=== PATIENT | female | born 1985 | race Hispanic/Latino ===

== ENCOUNTER 2022-11-06 02:16 | Inpatient (IN) | payer OTHER ==
[~2022-11-06] VITALS: Ht 149.9 cm; Wt 49.9 kg
[2022-11-06] MEDS ORDERED: LACTATED RINGERS 1000ML 1,000 ML IV ONE (02:30)
[2022-11-06 02:35] LABS: BASOPHILS % (AUTO) 0.3 % (0.0-5.0); EOSINOPHILS % (AUTO) 63.6 % (0.0-8.0); HEMATOCRIT 40.4 % (36-48); MEAN CORPUSCULAR HEMOGLOBIN 31.9 pg (27.0-33.0); MEAN CORPUSCULAR HGB CONC 31.4 g/dL (32.0-36.0); MEAN CORPUSCULAR VOLUME 101.5 fL (79-99); MONOCYTES % (AUTO) 6.7 % (3.0-13.0); NEUTROPHILS % (AUTO) 25.1 % (40.0-77.0); PLATELET COUNT (AUTO) 291 K/uL (130-400); RED BLOOD CELL COUNT(AUTO) 3.98 MIL/uL (4.00-5.50); RED CELL DISTRIBUTION WIDTH 14.3 % (11.0-15.5); WHITE BLOOD COUNT (AUTO) 20.7 K/uL (4.8-10.8)
[2022-11-06 02:54] LABS: APPEARANCE,URINE CLEAR (CLEAR); BILIRUBIN,URINE NEGATIVE (NEGATIVE); COLOR,URINE COLORLESS (YELLOW); GLUCOSE, URINE (UA) NEGATIVE (NEGATIVE); KETONES,URINE 150 mg/dL (NEGATIVE); LEUKOCYTE ESTERASE ,URINE 25 Leu/uL (NEGATIVE); NITRATE,URINE NEGATIVE (NEGATIVE); OCCULT BLOOD,URINE LARGE (NEGATIVE); PROTEIN,URINE 50 mg/dL (NEGATIVE); UROBILINOGEN,URINE 0.2 mg/dL (0.2-1.0)
[2022-11-06 02:57] LABS: CHLORIDE 103 mmol/L (101-111); GLOMERULAR FILTR. RATE CALC 66 mL/min (>60); GLUCOSE,RANDOM 86 mg/dL (70-105); POTASSIUM 4.8 mmol/L (3.5-5.1); SODIUM SERUM 141 mmol/L (136-145); UREA NITROGEN, BLOOD 15 mg/dL (7-18)
[2022-11-06 02:59] LABS: MUCUS,URINE RARE LPF (None Seen); RBC,URINE 51-100 /HPF (0-1); SQUAMOUS EPITHELIAL CELL,UR FEW /HPF (0-2)
[2022-11-06 03:01] LABS: ALANINE AMINOTRANSFERASE 21 U/L (12-78); ALBUMIN 4.6 g/dL (3.5-5.0); ALCOHOL, BLOOD 102 mg/dL (0-10); ASPARTATE AMINOTRANSFERASE 40 U/L (10-37); TOTAL PROTEIN, SERUM 8.6 g/dL (6.0-8.3)
[2022-11-06 03:02] LABS: LIPASE < 50 U/L (114-286)
[2022-11-06 03:03] LABS: CARBON DIOXIDE 9 mmol/L (21-32)
[2022-11-06 03:06] LABS: HCG,QUALITATIVE URINE NEGATIVE (NEGATIVE)
[2022-11-06] MEDS ORDERED: KETOROLAC 15MG/ML VIAL (15MG/ML) IV ONE (03:30)
[2022-11-06] MEDS ORDERED: DEXTROSE 5 %-0.45 % NACL 500 ML IV SCH (03:30)
[2022-11-06] MEDS ORDERED: DEXTROSE 5 % AND 0.9 % NACL 1,000 ML IV ONE (03:31)
[2022-11-06] MEDS: DEXTROSE 5 % AND 0.9 % NACL 1,000 ML IV SCH ×6 (04:20→23:06)
[2022-11-06] MEDS ORDERED: ONDANSETRON 4MG INJ IVP PRN (04:30)
[2022-11-06] MEDS ORDERED: PHARMACY COMMUNICATION MISC PRN ×2 (04:30→20:00)
[2022-11-06] MEDS ORDERED: ACETAMINOPHEN 325 MG TAB PO PRN (04:30)
[2022-11-06] MEDS ORDERED: CEFTRIAXONE 1G VIAL IVP SCH (04:30)
[2022-11-06] MEDS ORDERED: KETOROLAC 15MG/ML VIAL (15MG/ML) IM PRN (04:30)
[2022-11-06 07:44] LABS: AMPHET/METH SCREEN,URINE NEGATIVE (NEGATIVE); BARBITURATE SCREEN, URINE NEGATIVE (NEGATIVE); BENZODIAZEPINES SCREEN,URINE POSITIVE (NEGATIVE); CANNABINOID SCREEN,URINE NEGATIVE (NEGATIVE); COCAINE SCREEN,URINE POSITIVE (NEGATIVE); OPIATE SCREEN,URINE NEGATIVE (NEGATIVE); PHENCYCLIDINE SCREEN,URINE NEGATIVE (NEGATIVE)
[2022-11-06 08:00] VITALS: BP 118/75
[2022-11-06] MEDS: FAMOTIDINE 20MG VIAL IV SCH ×2 (08:59→19:20)
[2022-11-06] MEDS ORDERED: THIAMINE HCL IV SCH (09:00)
[2022-11-06] MEDS ORDERED: [UNRECOGNIZED DRUG - OTHER] IV SCH (09:00)
[2022-11-06] MEDS ORDERED: FOLIC ACID IV SCH (09:00)
[2022-11-06] MEDS ORDERED: SODIUM BICARB IV SCH (09:00)
[2022-11-06] MEDS ORDERED: SYRING IV SCH (09:00)
[2022-11-06 11:48] VITALS: BP 129/74
[2022-11-06] MEDS ORDERED: 0.9%NACL 50ML IV SCH (14:00)
[2022-11-06] MEDS: ZOSYN 3.375GM +NS 50ML IVPB SCH ×2 (14:50→19:20)
[2022-11-06 14:55] LABS: ABG PCO2 35 mmHg (32-45)
[2022-11-06] MEDS: LACTATED RINGERS 1000ML 1,000 ML IV SCH ×2 (14:55→23:06)
[2022-11-06 16:00] VITALS: BP 126/77
[2022-11-06 20:00] VITALS: BP 117/71
[2022-11-06] MEDS ORDERED: LORAZEPAM 2 MG/ML 1 ML VIAL IVP PRN (20:00)
[2022-11-06] MEDS ORDERED: CHLORDIAZEPOXIDE HCL 25 MG CAP PO PRN (20:00)
[2022-11-06 23:16] VITALS: BP 105/66
[2022-11-07] MEDS: DEXTROSE 5 % AND 0.9 % NACL 1,000 ML IV SCH (03:07)
[2022-11-07 03:33] VITALS: BP 112/63
[2022-11-07] MEDS: ZOSYN 3.375GM +NS 50ML IVPB SCH (05:36)
[2022-11-07 08:00] VITALS: BP 111/77
== END 2022-11-07 09:20 | disposition left against medical advice (07) | DRG 641 ==
LOC: EDH 02:16 → EDHIP 02:17 → 4BH 05:04
PROVIDERS: ADMIT Internal Medicine; ATTEND Internal Medicine
DX: E86.0 Dehydration (principal); F10.129 Alcohol abuse with intoxication, unspecified; E87.20 Acidosis, unspecified; F32.A Depression, unspecified; F41.9 Anxiety disorder, unspecified; Z53.20 Procedure and treatment not carried out because of patient's decision for unspecified reasons
CPT/HCPCS: 36415; 36600; 80053; 80305; 81001; 81025; 82803; 83605; 83690; 84145; 85025; 87040; 87088; G0378; J0696; J1885; J2543; J3411; J3490; J7030; J7042